=== PATIENT | female | born 1980 | race American Indian/Alaskan Native ===

== ENCOUNTER 2017-06-02 11:38 | Emergency (ER) | payer BC ==
[2017-06-02 12:13] VITALS: BMI 32.8
[2017-06-02] MEDS ORDERED: Sodium Chloride 0.9% 1,000 ML IV ONE (12:37)
[2017-06-02] MEDS ORDERED: Sodium Chloride 0.9% 1,000 ML ONE (12:44)
[2017-06-02 12:51] LABS: BASO # 0.1 K/uL (0.0-0.2); BASO % 0.9 % (0.0-2.0); EOS % 0.1 % (0.0-4.0); HEMOGLOBIN 13.3 g/dL (11.0-16.0); LYMPH # 1.1 K/uL (1.0-4.3); LYMPH % 15.6 % (20.0-40.0); MEAN CELL VOLUME 86.4 fL (81.0-99.0); MEAN CORPUSCULAR HEMOGLOBIN 28.6 pg (27.0-31.0); MEAN CORPUSCULAR HGB CONC 33.1 g/dL (33.0-37.0); MEAN PLATELET VOLUME 8.6 fL (7.2-11.7); MONO # 0.2 K/uL (0.0-0.8); MONO % 2.7 % (0.0-10.0); NEUT # 5.8 K/uL (1.8-7.0); NEUT % 80.7 % (50.0-75.0); RBC 4.67 Mil/uL (3.80-5.20); RED CELL DISTRIBUTION WIDTH 14.3 % (11.5-14.5); WHITE BLOOD COUNT 7.2 K/uL (4.8-10.8)
[2017-06-02 12:56] LABS: ALBUMIN 4.4 g/dL (3.5-5.0)
[2017-06-02 12:59] LABS: GFR AFRICAN-AMERICAN > 60; GFR NON-AFRICAN AMERICAN > 60
[2017-06-02 13:00] LABS: ALB/GLOB RATIO 1.2 (1.0-2.1); ALT/SGPT 24 U/L (9-52); AST/SGOT 25 U/L (14-36); BLOOD UREA NITROGEN 11 mg/dL (7-17); LIPASE 24 U/L (23-300)
[2017-06-02 13:12] LABS: HCG,QUALITATIVE URINE NEGATIVE (NEGATIVE)
[2017-06-02 13:21] LABS: SQUAMOUS EPITHIAL 2 /hpf (0-5); URINE AMORPHOUS SEDIMENT RARE /ul (<OCC); URINE BACTERIA RARE (<OCC); URINE BILIRUBIN NEGATIVE (NEGATIVE); URINE BLOOD NEGATIVE (NEGATIVE); URINE CLARITY Clear (Clear); URINE COLOR Straw (YELLOW); URINE GLUCOSE (UA) NORMAL (Normal); URINE LEUKOCYTE ESTERASE NEG Leu/uL (Negative); URINE NITRATE NEGATIVE (NEGATIVE); URINE PROTEIN NEGATIVE (NEGATIVE); URINE UROBILINOGEN NORMAL mg/dL (0.2-1.0)
--- NOTE | 2017-06-02 13:35 | C.PDOC ---
History Of Present Illness 36-year-old female, presents to the emergency department with complaints of abdominal pain and nausea since 03:00 this morning, associated with one episode of non-bloody/non-bilious vomiting. Patient denies dysuria, hematuria, vaginal bleeding, vaginal discharge, or any other associated symptoms. LMP 05/01. Patient denies any chance of being . No other complaints. Time Seen by Provider: 06/02/17 11:55 Chief Complaint (Nursing): Abdominal Pain History Per: Patient History/Exam Limitations: no limitations Onset/Duration Of Symptoms: Days Current Symptoms Are (Timing): Still Present Severity: Moderate Past Medical History Reviewed: Historical Data, Nursing Documentation, Vital Signs Vital Signs: Last Vital Signs Temp 98.3 F 06/02/17 17:18 Pulse 70 06/02/17 17:18 Resp 20 06/02/17 17:18 BP 160/90 H 06/02/17 17:18 Pulse Ox 99 06/02/17 17:18 Family History: States: No Known Family Hx - Social History Hx Alcohol Use: Yes Hx Substance Use: No - Immunization History Hx Tetanus Toxoid Vaccination: No Hx Influenza Vaccination: No Hx Pneumococcal Vaccination: No Review Of Systems Except As Marked, All Systems Reviewed And Found Negative. Constitutional: Negative for: Fever Cardiovascular: Negative for: Chest Pain Respiratory: Negative for: Shortness of Breath Gastrointestinal: Positive for: Nausea, Vomiting, Abdominal Pain Genitourinary: Negative for: Dysuria, Hematuria, Vaginal Discharge, Vaginal Bleeding Musculoskeletal: Negative for: Back Pain Physical Exam - Physical Exam Appears: Non-toxic, No Acute Distress Skin: Warm, Dry, No Rash Head: Atraumatic, Normacephalic Eye(s): bilateral: Normal Inspection Nose: Normal Oral Mucosa: Moist Lips: Normal Appearing Neck: Normal ROM Cardiovascular: Rhythm Regular, No Murmur Respiratory: Normal Breath Sounds, No Accessory Muscle Use Gastrointestinal/Abdominal: Soft, Tenderness (LLQ), No Guarding, No Rebound Extremity: Normal ROM Neurological/Psych: Oriented x3, Normal Speech ED Course And Treatment - Laboratory Results Result Diagrams: 06/02/17 12:44 06/02/17 12:44 O2 Sat by Pulse Oximetry: 100 Progress Note: Bloodwork and UA ordered and reviewed. Patient treated with IVFs , Toradol and Zofran. Disposition Counseled Patient/Family Regarding: Studies Performed, Diagnosis, Need For Followup, Rx Given - Disposition Referrals: [facility] [Outside] Disposition: HOME/ ROUTINE Disposition Time: 17:45 Condition: STABLE Additional Instructions: FOLLOW UP WITH YOUR DOCTOR/CLINIC IN 1-2 DAYS, AND WITH DIRECTOR OF RESOURCE DEVELOPMENT WITHIN 1 WEEK USE MEDICATIONS DIRECTED DRINK PLENTY OF FLUIDS, AND INCREASE YOUR FIBER INTAKE RETURN TO ER IF SYMPTOMS WORSEN Prescriptions: Docusate [Colace] 100 mg PO DAILY #30 cap Magnesium Citrate [Citrate of Mag] 300 ml PO ONCE PRN #1 bottle PRN Reason: Constipation Instructions: Constipation (ED), Ovarian Cyst (ED) Print Language: WELSH - POA Present On Arrival: None - Clinical Impression Clinical Impression: Abdominal pain, Constipation, Left ovarian cyst - Scribe Statement The provider has reviewed the documentation as recorded by the Scribe (Tyree Mendoza) All medical record entries made by the Scribe were at my direction and personally dictated by me. I have reviewed the chart and agree that the record accurately reflects my personal performance of the history, physical exam, medical decision making, and the department course for this patient. I have also personally directed, reviewed, and agree with the discharge instructions and disposition.
[2017-06-02 14:04] VITALS: RESP 20
--- NOTE | 2017-06-02 14:12 | RAD ---
Abdomen four views History: Constipation. Comparison: None available. Findings: Moderate to severe fecal retention in the right hemicolon. Distended/mildly dilated loops of small bowel seen within the mid to lower abdomen. Impression: Nonspecific bowel gas pattern with moderate to severe fecal retention in the colon as well as multiple prominently distended/dilated loops small bowel in the mid lower abdomen. Clinical correlation.
[2017-06-02 17:18] VITALS: BP 160/90; PULSE 70; TEMP 98.3
--- NOTE | 2017-06-02 17:35 | CT ---
PROCEDURE: CT Abdomen and Pelvis without Oral or IV contrast. HISTORY: LLQ PAIN COMPARISON: None available TECHNIQUE: Contiguous axial images of the abdomen and pelvis. No oral or IV contrast administered. Coronal and Sagittal reformats generated and reviewed. Radiation dose: Total exam DLP = 895.05 mGy-cm. This CT exam was performed using one or more of the following dose reduction techniques: Automated exposure control, adjustment of the mA and/or kV according to patient size, and/or use of iterative reconstruction technique. FINDINGS: There is limited evaluation of the solid organs without the administration of IV contrast. Examination also limited by paucity of intra-abdominal and intrapelvic fat. LOWER THORAX: No visible consolidation, pleural effusion, or pneumothorax. LIVER: Unremarkable unenhanced appearance. GALLBLADDER AND BILE DUCTS: Unremarkable unenhanced appearance. PANCREAS: Unremarkable unenhanced appearance. SPLEEN: Unremarkable unenhanced appearance. ADRENALS: Not well-visualized. KIDNEYS AND URETERS: No hydronephrosis or obstructing renal calculus. BLADDER: Distended urinary bladder. REPRODUCTIVE: Uterus is present. 2.2 cm left adnexal cystic structure, somewhat tubular; correlate clinically for possibility of cyst or hydrosalpinx. Recommend pelvic ultrasound for further evaluation. APPENDIX: The appendix appears within normal limits of caliber. No secondary signs of acute appendicitis. BOWEL: The stomach is nondistended. Lack of oral contrast limits evaluation for bowel pathology. The bowel loops appear within normal limits of caliber without evidence of intestinal obstruction. Moderate constipation. PERITONEUM: No significant free fluid. No definite free air. LYMPH NODES: No bulky lymphadenopathy identified. VASCULATURE: No aortic aneurysm. BONES: No acute osseous abnormality is detected. OTHER FINDINGS: None. IMPRESSION: Limited study. 2.2 cm left adnexal cystic structure, somewhat tubular; correlate clinically for possibility of cyst or hydrosalpinx. Recommend pelvic ultrasound for further evaluation. Moderate constipation. Additional findings as above.
[2017-06-02 17:50] VITALS: O2SAT 100
== END 2017-06-02 18:04 | disposition home or self-care (01) ==
LOC: C.ER 11:38
DX: K59.00 Constipation, unspecified (principal); N83.202 Unspecified ovarian cyst, left side; R10.9 Unspecified abdominal pain
CPT/HCPCS: 74022; 74176; 80053; 81001; 83690; 84703; 85025; 96361; 96365; 96375; 99285; J1741; J1885; J2405; J7040